=== PATIENT | male | born 1935 | race Caucasian/White ===

== ENCOUNTER 2020-05-06 14:49 | Inpatient (IN) | payer MEDICARE ==
[~2020-05-06] VITALS: Ht 177.8 cm; Wt 70.2 kg
[2020-05-06] MEDS ORDERED: COUMADIN 1MG TAB1 M1 PER TUBE (15:14)
[2020-05-06] MEDS ORDERED: UNICOMPLEX M TA1 TA1 PO (15:15)
[2020-05-06] MEDS ORDERED: PLAVIX 75 MG TA75 MG PO (15:16)
[2020-05-06] MEDS ORDERED: ASA81BEC PO (15:17)
[2020-05-06] MEDS ORDERED: DILANTIN-1125 MG/5 M PO (15:19)
[2020-05-06] MEDS ORDERED: LOVENOX40 MG/0.4 SUBQ (15:20)
[2020-05-06] MEDS ORDERED: LOPRESSOR50 MG PER TUBE (15:21)
[2020-05-06] MEDS ORDERED: PROTONIX40 M2 PO (15:22)
[2020-05-06] MEDS ORDERED: IPRAT-ALBUT 0.5-3 ML INH (15:24)
[2020-05-06] MEDS ORDERED: DILANTIN50 MG PO (15:25)
[2020-05-06] MEDS ORDERED: CRESTOR40 MG PO (15:28)
[2020-05-06 19:11] VITALS: BP 99/55
[2020-05-06 19:15] VITALS: BP 96/50
[2020-05-07 04:41] LABS: HEMATOCRIT 27.6 % (42.0-52.0); HEMOGLOBIN 9.4 gm/dL (14.0-18.0); MCV 94.2 fL (80.0-100.0); MPV 7.6 fl. (7.2-11.1); RBC 2.93 mil/uL (4.50-6.00); RDW-CV 19.9 % (10.5-14.5); WBC 8.3 thou/uL (4.0-11.0)
[2020-05-07 04:49] LABS: CALCIUM 8.6 mg/dL (8.5-10.1); CREATININE 0.9 mg/dL (0.6-1.3); POTASSIUM 4.1 mmol/L (3.5-5.1)
[2020-05-07 04:53] LABS: INR 1.1; PROTIME 11.5 Seconds (9.20-11.50)
--- NOTE | 2020-05-07 06:29 | NUR ---
PT ARRIVED ONTO UNIT AT APPROX 1800 FROM [facility]. ASSUMED CARES AT 1920. ALERT AND ORIENTED. BUT CAN BE FORGETFUL. [place]. 02 2L NC PLACED ON BY RT OVERNIGHT. NPO. PEG TUBE. HAS JEVITY 1.5 @ 55CC/HR CONTINUOUS. H20 100 CC FLUSHES. CONSULTED FLY WORKER FOR FEEDING RECOMMENDATIONS THIS AM. PILLS CRUSHED AND GIVEN VIA PEG TUBE. PT USED URINAL BUT WAS FOUND TO BE INCONTINENT OF URINE AND STOOL. DENIED ANY PAIN, NAUSEA/VOMITING. SPOKE WITH PT'S SON AND INFORMED OF ARRIVAL ONTO UNIT. SLEPT MOST OF THE NIGHT. CALL LIGHT IN REACH AND BED ALARM ON.
[2020-05-07 08:03] VITALS: BP 93/56
--- NOTE | 2020-05-07 16:32 | NUR ---
AM ASSESSMENT AND VITAL SIGNS COMPLETED DOCUMENTED. PT PARTICIPATED WITH PT, OT AND ST, TOLERATED WELL. PT SHOWERED, SKIN AROUND PEG TUBE CLEANED AND DRAIN SPONGE REPLACED. TAPE CONTROL SKIN OR SPAR MILL OPERATOR CONSULTED AND TUBE FEEDING HAS BEEN CONVERTED TO BOLUS FEEDINGS WITH WATER FLUSHES. PT USES THE CALL LIGHT APPROPRIATELY, REQUIRES ASSISTANCE WITH USING THE URINAL. FALL PRECAUTIONS AND HOURLY ROUNDING CONTINUE.
[2020-05-07 20:03] VITALS: BP 91/48
[2020-05-07 22:43] VITALS: BP 92/52
[2020-05-08 06:05] LABS: INR 1.1; PROTIME 11.6 Seconds (9.20-11.50)
--- NOTE | 2020-05-08 06:42 | NUR ---
ASSUMED CARES AT 1920. ALERT AND ORIENTED. PLEASANT. DENIED ANY PAIN. 02 2L NC. PEG TUBE PATENT. HAD 20 CC STOMACH RESIDUAL CHECK. BOLUS OF 1 CAN JEVITY GIVEN AT HS WITH 100 CC H2O FLUSH. PT TOLERATED WELL. MIN ASSIST WITH GAIT BELT AND WALKER. VERY WEAK AND UNSTABLE GAIT. USED URINAL WITH NURSING ASSIST. HELD METOPROLOL DUE TO LOW BP. SLEPT MOST OF THE NIGHT. CALL LIGHT IN REACH AND BED ALARM ON.
[2020-05-08 07:53] VITALS: BP 96/53
--- NOTE | 2020-05-08 17:03 | NUR ---
GRACIE and Dr Pardo met with pt to review team conference summary and plan for pt to remain on rehab unit and team to reteam next Wednesday. SW called pt and then spoke with pt son in person to review team conference summary and discuss dc planning and complete assessment. Pt lives at home with . 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 Pt has RW, cane. Pt had been having falls, sleep issues over the past month. Pt son said that pt was able to take care of himself but declined in function from the beginning of March to Father's Day. 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 Pt son said that at [facility], they had ruled out CVA, brain tumor, cancer (pt has hx of lymphoma). SW to continue to follow to assist with safe dc planning.
--- NOTE | 2020-05-08 18:29 | NUR ---
ASSESSMENT COMPLETED DOCUMENTED THIS MORNING. PATIENT PARTICIPATING WITH THERAPIES AND FATIGUES EASILY. VIDEO SWALLOW THIS MORNING WITH ST...UPGRADED TO REGULAR DIET AND NECTAR LIQUIDS, MAY TAKE ONE PILL AT A TIME WITH NECTAR LIQUIDS. HAS HAD LUNCH AND SUPPER TOLERATING WELL AND REMEMBERS TO ALWAYS DO HIS CHIN TUCK WITH ALL SWALLOWS. 02 ON 2LPM/NC WITH NOTED SOB WITH ACTIVITY. IS ALERT AND PLEASANT WITH RANDOM ATAXIC MOVEMENTS NOTED, DR. KOWALSKI CONSULTED AND WAS CALLED TO ANSWERING SERVICE AT 1315.
[2020-05-08 19:30] VITALS: BP 96/48
[2020-05-09 04:02] LABS: INR 1.2; PROTIME 11.9 Seconds (9.20-11.50)
--- NOTE | 2020-05-09 04:48 | NUR ---
ASSUMED CARES AT 1920. ALERT AND ORIENTED. PLEASANT. WILL SOMETIMES GET UP WITHOUT CALLING TO USE BATHROOM. O2 2L NC. TOOK PILLS WHOLE WITH NECTAR THICK LIQUIDS. NO COUGHING WITH SWALLOWING OR ANY ISSUES NOTED. ENCOURAGED FLUIDS. MIN ASSIST WITH GAIT BELT AND WALKER. GAIT IS WOBBLY AND UNSTEADY AT TIMES. DENIED ANY PAIN. PEG TUBE PATENT. SLEPT WELL. CALL LIGHT IN REACH AND BED ALARM ON.
[2020-05-09 08:00] VITALS: BP 87/44
--- NOTE | 2020-05-09 18:18 | NUR ---
AM ASSESSMENT AND VITAL SIGNS COMPLETED DOCUMENTED. PT CONTINUES TO MAKE PROGRESS WITH ALL THERAPIES. PT HAS A GOOD APPETITE AND IS INDEPENDENT WITH EATING, ENCOURAGED HIM TO INCREASE INTAKE OF THICKENED LIQUIDS. PT HAS NOT HAD ANY INCONTINENCE THIS SHIFT. FALL PRECAUTIONS AND HOURLY ROUNDING CONTINUE.
[2020-05-09 19:45] VITALS: BP 85/59
--- NOTE | 2020-05-09 23:37 | NUR ---
ASSUMED CARE AT 1930. PATIENT RESTING IN RECLINER WATCHING THE WORLD SERIES FROM 1984. TO BED AROUND 2029. MEDS CRUSHED AND PLACED INTO PEG. PEG PATENT AND FLUSHES WELL WITH NO RESIDUAL. UP WITH GAIT BELT, WALKER. ALERT AND ORIENTED. O2 2L/NC. METOPROLOL HELD THIS PM DUE TO LOW BP. HEART RATE RECHECKD MANUALLY, WAS 81/MIN. VOIDS PER URINAL. NO C/O PAIN. HOURLY ROUNDS CONTINUE. BED ALARM ON. CALL LITE IN REACH
[2020-05-10 05:21] LABS: INR 1.2; PROTIME 12.8 Seconds (9.20-11.50)
--- NOTE | 2020-05-10 05:33 | NUR ---
SLEPT MOST OF THE NIGHT. MENTIONED TO EDITORIAL WRITER THAT HE WANTED SIDE RAIL DOWN TO VOID. THIS WAS REPORTED TO NURSING, PATIENT UP WITH COMMODITIES BROKER, GAIT BELT WALKER. VOIDED PER TOILET WHILE STANDING. GAIT IMPROVED OVER LAST NIGHT. NO C/O PAIN. TURNS SELF. HOURLY ROUNDS CONTINUE. BED ALARM ON. CALL LITE IN REACH.
[2020-05-10 07:54] VITALS: BP 93/51
--- NOTE | 2020-05-10 18:18 | NUR ---
ASSESSMENT COMPLETED DOCUMENTED THIS MORNING. PATIENT HAS BEEN UP AND PARTICIPATING WITH THERAPY....TOLERATING AND PROGRESSING WELL. MRI OF THE HEAD PERFORMED THIS MORNING AND IN TO SEE PATIENT WITH NO NEW ORDERS REC'D. CONTINUES TO EAT AND DRINK WELL WITH NO ISSUES SWALLOWING. 02 AT 2LPM/NC WITH SATS IN THE MID 90'S.
[2020-05-10 20:00] VITALS: BP 96/55
[2020-05-11 04:29] LABS: INR 1.3; PROTIME 13.7 Seconds (9.20-11.50)
--- NOTE | 2020-05-11 05:24 | NUR ---
PT ALERT AND ORIENTED. FORGETFUL. MEDS GIVEN PER EMAR. METOPROLOL HELD DUE TO BP WAS 96/55. PT DENIES PAIN THIS SHIFT. FALL PRECAUTIONS IN PLACE. CALL LIGHT WITHIN REACH. HOURLY ROUNDINGS MADE. PT SLEPT WELL THIS SHIFT. WILL CONTINUE TO MONITOR.
[2020-05-11 09:00] VITALS: BP 94/58
--- NOTE | 2020-05-11 10:52 | CON ---
[address] [address] CONSULTATION Name: CHACHOELIZABETH Regina Room: [address] ADM IN M.R.#: [id number] Admission: 05/06/20 Attend Phys: Stephon Pardo MD Discharge: Date of : 39 Report #: [id number] THIS REPORT FOR: //name// cc: Dale Sanderson MD, Cabot L. MD ~ THIS REPORT FOR: //name// CC: Dale Pardo DATE OF SERVICE: 05/08/2020 HISTORY OF PRESENT ILLNESS: This is an 84-year-old male patient who was seen by me for ataxia. The patient provides only limited history. I tried to call the patient's and patient's son but I am unable to reach them. He does not think there is much ataxia going on. In fact, he was walking with physical therapist and I talked to him and he indicated when the patient goes tandem walking, he is unstable on his feet. It is not clear how long it is going. REVIEW OF SYSTEMS: Difficult. The patient is very hard of hearing. It is only from the records and he apparently was in [facility]. He had swallowing difficulty there and I am not sure what happened there. I need to talk to the family. He does have generalized weakness. He denies any visual cardiac symptoms. He does appear to have respiratory symptoms. He does not complain of any musculoskeletal, constitutional, dermatological, hematological, psychiatric, throat symptom associated with present symptomatology. PAST MEDICAL HISTORY: Positive for admission to [facility] and I am not sure what that admission was for. FAMILY HISTORY: Noncontributory. SOCIAL HISTORY: He says he does not drink any alcohol. PHYSICAL EXAMINATION: Indicate he is hard of hearing, but his speech looks intact. His memory is somewhat diminished, but I do not know what his baseline is. He moves all 4 extremities. He tells me that he can appreciate the position sense. His reflexes are symmetrical. He was able to do [id number]. He could not cooperate with the fundus examination. He is reasonably built individual. He does not have any dysmorphic features of eyes, ears and face. Cardiac examination appears unremarkable. Respiratory examination indicates some respiratory difficulty. Blood pressure is 96/53, pulse is 70, temperature is 97.8. There is no imaging study here. IMPRESSION: I will try to talk to you and try to continue to reach this patient's family. He is on Dilantin. I do not know why [place] [address] CONSULTATION Name: ELIZABETH FLOR Room: [address] IN M.R.#: [id number] Admission: 05/06/20 Attend Phys: Stephon Pardo MD Discharge: Date of : 39 Report #: [id number] do not know what kind of workup he had, he will need an MRI. He will need a Dilantin level and rest of them, we will try to see what to say and decide about further management after that. Thank you very much for this referral. <ELECTRONICALLY SIGNED> By: Catracho Rod MD 05/11/20 [id number] [id number] Rod MD /nt
[2020-05-11 19:15] VITALS: BP 90/43
--- NOTE | 2020-05-11 19:43 | NUR ---
UP WITH STAND BY ASSIST, GAIT BELT AND WALKER. DENIES NEED FOR PAIN MEDICATION WHEN ASKED. EATTING REGULAR DIET WITH NECTAR THICKEN LIQUIDS WITHOUT DIFFICULTY. Sunshine CALHOUN BAR EXAMINER NOTIFIED OF LOW B/P AND NEW ORDER NOTED. WILL CONTINUE TO MONITOR B/P. O2 SAT WITH THERAPY ON ROOM AIR REMAINS ABOVE 94%. USUALLY USES CALL LIGHT WHEN NEED ASSIST. FALL PRECAUTIONS IN PLACE. BED ALARM AND CHAIR ALARM USED.
[2020-05-11 19:50] VITALS: BP 105/64
--- NOTE | 2020-05-12 05:22 | NUR ---
PT ALERT AND ORIENTED. VSS ON RA. MEDS GIVEN PER EMAR. PT SLEPT WELL THIS SHIFT. PT DENIES PAIN THIS SHIFT, MEDS GIVEN PER EMAR. FALL PRECAUTION IN PLACE. CALL LIGHT WITHIN REACH. WILL CONTINUE TO MONITOR.
[2020-05-12 06:11] LABS: INR 1.4; PROTIME 14.2 Seconds (9.20-11.50)
[2020-05-12 07:01] VITALS: BP 106/61
[2020-05-12 07:45] VITALS: BP 96/58
[2020-05-12 16:00] VITALS: BP 99/49
[2020-05-12 16:02] VITALS: BP 92/53
[2020-05-12 16:04] VITALS: BP 92/48
--- NOTE | 2020-05-12 16:09 | NUR ---
ALERT AND ORIENTED X4. UP WITH 1 ASSIST, GAIT BELT AND WALKER. IMPULSIVE AT TIMES. DENIES PAIN WHEN ASKED. CONTINENT OF BOWEL AND BLADDER. REMAINS ON REGULAR DIET WITH NECTAR THICKEN LIQUIDS. USUALLY USES CALL LIGHT WHEN NEEDING ASSIST. FALL PRECAUTIONS IN PLACE, BED ALARM AND CHAIR ALARM USED.
[2020-05-12 19:30] VITALS: BP 101/57
--- NOTE | 2020-05-13 05:49 | NUR ---
PT SLEPT WELL THIS SHIFT. ALERT AND ORIENTED. FORGETFUL. MEDS GIVEN PER EMAR. RT ORDERED. FALL PRECAUTION IN PLACE. CALL LIGHT WITHIN REACH. HOURLY ROUNDINGS MADE. WILL CONTINUE TO MONITOR.
[2020-05-13 05:55] LABS: INR 1.3; PROTIME 13.7 Seconds (9.20-11.50)
[2020-05-13 06:46] VITALS: BP 105/66
[2020-05-13 07:18] VITALS: BP 104/61
[2020-05-13 15:30] VITALS: BP 101/54
--- NOTE | 2020-05-13 17:44 | NUR ---
ALERT AND ORIENTED X4. UP WITH STAND BY ASSIST, GAIT BELT AND WALKER. IMPULSIVE AT TIME AND WILL NOT USE CALL LIGHT. FALL PRECAUTIONS IN PLACE. BED ALARM AND CHAIR ALARM USED. DENIES NEED FOR PAIN MEDICATIONS. REMAINS ON NECTAR THICKEN LIQUIDS. TOLERATING THICKEN LIQUIDS WITH NO COUGHING OR CHOKING NOTED.
[2020-05-13 19:15] VITALS: BP 98/50
--- NOTE | 2020-05-13 23:52 | NUR ---
ASSUMED CARE AT 1930. PATIENT RESTING IN BED WATCHING [employer] BASEBALL. TAKES PILLS WHOLE WITH WATER, FOLLOWED BY NECTAR THICK LIQUIDS. PEG TUBE INTACT. TURNS SELF. VOIDS PER URINAL. NO C/O PAIN. BED ALARM ON. CALL LITE IN REACH. HOURLY ROUNDS CONTINUE.
[2020-05-14 01:30] VITALS: BP 116/62
[2020-05-14 04:28] LABS: INR 1.3; PROTIME 13.3 Seconds (9.20-11.50)
--- NOTE | 2020-05-14 05:06 | NUR ---
APPEARS SLEEPING. RESTED IN BED ALL NIGHT. NO C/O PAIN. BED ALARM ON. CALL LITE IN REACH. HOURLY ROUNDS CONTINUE.
[2020-05-14 08:00] VITALS: BP 116/61
[2020-05-14 14:00] VITALS: BP 103/56
--- NOTE | 2020-05-14 16:29 | NUR ---
AM ASSESSMENT AND VITAL SIGNS COMPLETED DOCUMENTED. PT WORKED WITH ALL THERAPIES. PT HAS USED HIS CALL LIGHT APPROPRIATELY, AMBULATES TO THE BRP WITH A WALKER AND HAS BEEN CONTINENT THE ENTIRE SHIFT. PT FEEDS HIMSELF AND EATS 90-100% OF ALL MEALS. FALL PRECAUTIONS AND HOURLY ROUNDING CONTINUE.
[2020-05-14 20:25] VITALS: BP 91/50
--- NOTE | 2020-05-14 20:30 | NUR ---
SITTING UP IN BED WATCHING BASEBALL ON TV. DENIES DISCOMFORT. PEG DRESSING DRY/INTACT. TOOK MEDICATIONS WHOLE WITH NECTAR THICKENED APPLE JUICE. AMBULATED TO THE BATHROOM WITH SBA, GAITBELT, WALKER TO VOID. PATIENT CHANGED INTO [facility] WITH SET UP. CALL LIGHT WITHIN REACH.
--- NOTE | 2020-05-15 06:04 | NUR ---
RESTED QUIETLY. UP TO THE BATHROOM TO VOID THIS AM. HOURLY ROUNDING IN PROGRESS.
[2020-05-15 08:00] VITALS: BP 103/57
--- NOTE | 2020-05-15 16:14 | NUR ---
AM ASSESSMENT AND VITAL SIGNS COMPLETED DOCUMENTED. PT WORKED WITH ALL THERAPIES, CONTINUES TO MAKE PROGRESS. PT HAS BEEN CONTINENT AND IS ABLE TO MANAGE [employer] AND CLOTHING WITH MIN ASSIST. FALL PRECAUTIONS AND HOURLY ROUNDING CONTINUE.
[2020-05-15 19:41] VITALS: BP 103/91
--- NOTE | 2020-05-15 23:11 | NUR ---
ASSUMED CARE AT 1930. PATIENT RESTING IN BED. TAKES PILLS WHOLE ONE AT A TIME WITH NECTAR THICK LIQUIDS WITHOUT DIFF. UP WITH SBA, GAIT BELT, WALKER. SOME ATAXIA NOTED BUT SAFE ENOUGH FOR CARES. VOIDS AND HAD BM PER TOILET. DENIES PAIN. PEG TUBE C/D/I. FALL PRECAUTIONS REINFORCED. NO C/O PAIN HOURLY ROUNDS CONTINUE. ALARMS FOR SAFETY. CALL LITE IN REACH.
--- NOTE | 2020-05-16 06:00 | NUR ---
RESTED IN BED ALL SHIFT. APPEARED TO BE SLEEPING MOST OF THE NIGHT. TURNS SELF. NO C/O PAIN. UP TO HAVE BM AND VOID ONCE, VOIDS PER URINAL. HOURLY ROUNDS CONTINUE. ALARMS FOR SAFETY. CALL LITE IN REACH.
[2020-05-16 09:30] VITALS: BP 143/54
--- NOTE | 2020-05-16 09:39 | NUR ---
GRACIE and Dr Pardo met with pt after team conference yesterday to review team conference summary and plan for pt to remain on rehab another week with plan to dc home after team conference next Tuesday 05/22. Pt in agreement with plan. GRACIE called pt son Kadeem this morning and reviewed dc planning and requested for family to bring in pt shoes per OT. Pt son thought pt had shoes here from his admission but said he would consider bringing in other shoes as well. SW to continue to follow to assist with safe dc planning.
[2020-05-16 11:50] VITALS: BP 94/63
[2020-05-16 11:55] VITALS: BP 85/60
[2020-05-16 12:00] VITALS: BP 80/55
[2020-05-16 12:15] VITALS: BP 94/54
--- NOTE | 2020-05-16 16:58 | NUR ---
ASSUMMED CARE OF PT AT 0730, PT ALERT AND ORIENTED, FROGETFUL, TRANSFERS WITH GB WALKER ASSIST OF 1, AMBULATES TO BATHROOM TO VOID, CONTINENT OF BOWEL AND BLADDER, HAD EPISODE THIS AM OF FEELING WEAK, SWEATY, ORTHOSTATIC BP CHECKED, DROP IN BP NOTED, PHYSICIAN INFORMED, NO FURTHER ORDERS, PT ENCOURAGED TO DRINK MORE FLUIDS, FEELING BETTER DAY PROGRESSES, TOLERATED FOOD AND FLUIDS WELL, NECTAR THICK LIQUIDS MAINTAINED, PT EDUCATED ON HIGH FALL RISK AND IMPORTANCE OF NOT GETTING UP WITHOUR USING CALL LIGHT, PT IS ABLE TO TURN OFF CHAIR ALARM AND HAS BEEN UP IN ROOM WITHOUT ASSIST, PARTICIPATED IN ALL THERAPIES, HOURLY ROUNDING COMPLETED, ASSESSMENT COMPLETE, WILL CONTINUE TO MONITOR.
[2020-05-16 19:30] VITALS: BP 96/54
[2020-05-17 06:00] VITALS: BP 106/61
--- NOTE | 2020-05-17 06:27 | NUR ---
PT SLEPT WELL THIS SHIFT. VSS ON RA. ALERT AND ORIENTED. PT HAD BM X3 THIS SHIFT. PT USED CALL LIGHT APPROPRIATELY. MEDS GIVEN ORDERED. PT DENIES PAIN. FALL PRECAUTION IN PLACE. CALL LIGHT WITHIN REACH. HOURLY ROUNDINGS MADE. WILL CONTINUE TO MONITOR.
[2020-05-17 08:00] VITALS: BP 109/60
[2020-05-17 08:05] VITALS: BP 105/60
[2020-05-17 08:10] VITALS: BP 98/55
[2020-05-17 14:28] LABS: CALCIUM 8.4 mg/dL (8.5-10.1); CREATININE 0.9 mg/dL (0.6-1.3); POTASSIUM 4.1 mmol/L (3.5-5.1)
[2020-05-17 16:00] VITALS: BP 112/58
--- NOTE | 2020-05-17 16:18 | NUR ---
ASSUMMED CARE OF PT AT 0730, PT ALERT AND ORIENTED, FORGETFUL, TRANSFERS WITH SBA, GB WALKER BUT NEEDS CUEING HE LEAVES THE WALKER BEFORE HE IN NEAR THE CHAIR OR TOILET, PT DOES AMBULATE TO TOILET TO VOID, PT INFORMED OF NEED FOR URINE SAMPLE, PT VOIDED INTO TOILET RATHER THAN URINAL, PT RE EDUCATED ON NEED FOR SAMPLE, PT ABLE TO TURN OFF CHAIR ALARM AND PT FOUND UP IN ROOM , PT EDUCATED ON FALL PRECATUIONS AND NEED TO USE CALL LIGHT, NO C/O DIZZINESS THIS SHIFT, DENIES PAIN, TAKING FOOD AND FLUIDS WELL, PARTICIPATED IN ALL THERAPIES, HOURLY ROUNDING COMPLETED, ASSESSMENT COMPLETE, WILL CONTINUE TO MONITOR.
[2020-05-17 19:22] LABS: URINE BILIRUBIN NEGATIVE (Negative); URINE BLOOD NEGATIVE (Negative); URINE CLARITY CLEAR; URINE COLOR YELLOW; URINE GLUCOSE-RANDOM NEGATIVE (Negative); URINE KETONES NEGATIVE (Negative); URINE LEUKOCYTES-REFLEX NEGATIVE (Negative); URINE NITRITE-REFLEX NEGATIVE (Negative); URINE PROTEIN NEGATIVE (Negative); URINE UROBILINOGEN 0.2 E.U./dl (0.2-1.0)
[2020-05-17 19:30] VITALS: BP 98/52
--- NOTE | 2020-05-17 20:25 | NUR ---
SITTING UP IN BED WATCHING BASEBALL ON TV. GOT UP EARLIER OUT OF BED WITHOUT CALLING FOR ASSISTANCE. DENIES DISCOMFORT. CALL LIGHT WITHIN REACH. DRINKS NECTAR THICKENED LIQUIDS.
--- NOTE | 2020-05-18 05:29 | NUR ---
RESTED SOUNDLY. UP TO THE BATHROOM THIS MORNING WITH CGA, WALKER. REFUSES TO TAKE THE WALKER ALL THE WAY TO THE TOILET. LOST HIS BALANCE BEFORE SITTING DOWN TO THE TOILET. HAD A MODERATE LOOSE BM. DOES OWN [employer]. HOURLY ROUNDING IN PROGRESS.
[2020-05-18 08:00] VITALS: BP 108/63
--- NOTE | 2020-05-18 18:28 | NUR ---
AM ASSESSMENT AND VITAL SIGNS COMPLETED DOCUMENTED. PT WORKED WITH THERAPIES. PT IS AMBULATORY WITH A WALKER, UNSTEADY BUT ABLE TO RECOVER WITHOUT FALLING. PT REMAINS ON THICKENED LIQUIDS, INCREASED INTAKE ENCOURAGED. PT HAS BEEN CONTINENT THIS SHIFT. NO C/O PAIN OR DISCOMFORT. FALL PRECAUTIONS AND HOURLY ROUNDING CONTINUE.
--- NOTE | 2020-05-18 19:20 | NUR ---
SITTING UP IN BED WATCHING BASEBALL ON TV. DENIES DISCOMFORT. IN GOOD SPIRITS. CALL LIGHT WITIN REACH. AMBULATED TO THE BATHROOM WITH SBA, GAITBELT, WALKER. STOOD AT TOILET TO VOID.
[2020-05-18 19:30] VITALS: BP 105/60
[2020-05-19 05:14] LABS: INR 1.2; PROTIME 12.8 Seconds (9.20-11.50)
--- NOTE | 2020-05-19 05:53 | NUR ---
UP X 2 DURING THE NIGHT TO THE BATHROOM TO VOID WITH SBA, GAITBELT, WALKER. HOURLY ROUNDING IN PROGRESS.
[2020-05-19 08:00] VITALS: BP 107/60
--- NOTE | 2020-05-19 17:51 | NUR ---
AM ASSESSMENT AND VITAL SIGNS COMPLETED DOCUMENTED. PT AMBULATES TO THE BRP WITH A WALKER AND STAND BY ASSIST. PT FEEDS HIMSELF AND HAS A GOOD APPETITE. NO C/O PAIN OR DISCOMFORT. PT ENCOURAGED TO USE THE CALL LIGHT BEFORE GETTING UP AND HAS BEEN MORE COMPLIANT THIS SHIFT. FALL PRECAUTIONS AND HOURLY ROUNDING CONTINUE.
[2020-05-19 19:25] VITALS: BP 82/44
--- NOTE | 2020-05-19 19:25 | NUR ---
SITTING UP IN CHAIR WATCHING TV. DENIES DISCOMFORT. CALL LIGHT WITHIN REACH. AMBULATED TO THE BATHROOM WITH SBA, GAITBELT, WALKER. HAD A MODERATE BM. DID OWN [facility]. DECIDED TO GO TO BED AFTERWARDS.
[2020-05-20 04:30] LABS: ABSOLUTE BASOPHILS 0.1 thou/uL (0.0-0.2); ABSOLUTE EOSINOPHILS 0.2 thou/uL (0.0-0.7); ABSOLUTE MONOCYTES 0.7 thou/uL (0.0-1.2); ABSOLUTE NEUTROPHILS 3.1 thou/uL (1.6-8.1); BASOPHILS 1.8 %; EOSINOPHILS 4.2 %; HEMATOCRIT 29.8 % (42.0-52.0); HEMOGLOBIN 10.1 gm/dL (14.0-18.0); LYMPHOCYTES 19.9 %; MCH 31.5 pg (26.0-34.0); MCHC 33.9 g/dL (28.0-37.0); MONOCYTES 13.8 %; MPV 7.9 fl. (7.2-11.1); NUCLEATED RBCS 0 /100WBC; PLATELET COUNT* 280 thou/uL (150-400); POLYS 60.3 %; RDW-CV 18.2 % (10.5-14.5); WBC 5.1 thou/uL (4.0-11.0)
[2020-05-20 04:38] LABS: CALCIUM 7.8 mg/dL (8.5-10.1); POTASSIUM 4.2 mmol/L (3.5-5.1)
--- NOTE | 2020-05-20 05:33 | NUR ---
UP X 2 DURING THE NIGHT TO THE BATHROOM TO VOID. DIDN'T USE THE CALL LIGHT. SET THE BED ALARM OFF. PATIENT IS SLIGHTLY UNSTEADY. HOURLY ROUNDING IN PROGRESS.
[2020-05-20 07:45] VITALS: BP 112/61
--- NOTE | 2020-05-20 15:48 | NUR ---
ALERT AND ORIENTED X4. DENIES NEED FOR PAIN MEDICATION. UP WITH STAND BY ASSIST, GAIT BELT AND WALKER. REMAINS ON NECTAR THICKEN LIQUIDS AND REGULAR DIET. CALL LIGHT WITHIN REACH BUT PATIENT AT TIMES WILL BE IMPULSIVE AND GET UP WITHOUT USING CALL LIGHT AND THEN SHUT OFF ALARM. FALL PRECAUTIONS IN PLACE. BED ALARM AND CHAIR ALARM USED. NOT USING PEG TUBE AT THIS TIME.
[2020-05-20 19:20] VITALS: BP 106/63
--- NOTE | 2020-05-21 05:27 | NUR ---
Pt alert and oriented. Forgetful. VSS on RA. MEds given per emar. Pt denies pain. Pt slept well this shift. Pt called out appropriately to use the bathroom and also pulled the cord in his bathroom when he was done as instructed, except one time. Pt now awake, brushed his hair, washed his face, cleaned ou t his dentures and sitting in the recliner. Will continue to monitor.
[2020-05-21 07:45] LABS: INR 1.3; PROTIME 13.1 Seconds (9.20-11.50)
[2020-05-21 08:00] VITALS: BP 91/61
[2020-05-21] MEDS ORDERED: CYCLOBENZAPRINE10 MG PO (09:53)
[2020-05-21] MEDS ORDERED: LOVENOX100 MG/1 M SUBQ (09:53)
[2020-05-21] MEDS ORDERED: COUMADIN 5 MG TA5 M1 PO (09:53)
--- NOTE | 2020-05-21 14:28 | NUR ---
ASSUMMED CARE OF PT AT 0730, PT ALERT AND ORIENTED, FORGETFUL, TRANSFERS WITH SBA, GB WALKER, AMBULATES TO BATHROOM TO VOID, NO BM THIS SHIFT, DENIES PAIN, PT TAKING FOOD AND NECTAR THICK LIQUIDS, PEG TUBE INTACT, GROIN AND SCROTAL AREA RED,SCALY, BARRIER OINTMENT APPLIED, WILL INFORM PHYSICIAN, PARTICIPATED IN ALL THERAPIES, HOURLY ROUNDING COMPLETED, ASSESSMENT COMPLETE, WILL CONTINUE TO MONITOR.
[2020-05-21 19:35] VITALS: BP 107/57
--- NOTE | 2020-05-21 19:35 | NUR ---
SITTING UP IN BED WATCHING THE [employer] ON TV. IN GOOD SPIRITS. DENIES DISCOMFORT. CALL LIGHT WITHIN REACH. MYCOSTATIN POWDER APPLIED TO REDDENED AREA IN GROIN. ENCOURAGED PATIENT TO LEAVE PJ PANTS OFF TONIGHT TO LET SKIN AIR OUT. PATIENT KEPT PANTS OFF BUT LEFT UNDERWEAR ON.
--- NOTE | 2020-05-22 04:54 | NUR ---
UP X 2 DURING THE NIGHT TO THE BATHROOM TO VOID. HOURLY ROUNDING IN PROGRESS.
[2020-05-22 07:41] LABS: INR 1.5; PROTIME 14.8 Seconds (9.20-11.50)
[2020-05-22 08:20] VITALS: BP 103/65
--- NOTE | 2020-05-22 15:09 | NUR ---
ASSUMMED CARE OF PT AT 0730, PT ALERT, FORGETFUL, TRANSFERS WITH SBA/MIN ASSIST GB WALKER, NEEDS CUEING, VOIDS PER TOILET, SMALL BM X 1 THIS AM, NYSTATIN APPLIED TO GROIN/SCROTAL AREA, PT ON THIN LIQUIDS AND TOLERATING WELL, RICCARDO RODRIGUEZ, PARTICIPATED IN ALL THERAPIES, HOURLY ROUNDING COMPLETED, ASSESSMENT COMPLETE, WILL CONTINUE TO MONITOR.
--- NOTE | 2020-05-22 17:02 | NUR ---
GRACIE and Dr Pardo met with pt to review team conference and plan for dc Wednesday as team recommending pt have supervision/possible assist available at all times and was not certain pt would be capable caregiver at all times. Pt understood possible dc home Wednesday vs facility if needed. GRACIE spoke in detail with pt son who said that pt should be okay to care for pt and provide supervision as pt is actually functioning better than realized and is at home alone while pt is in hospital. Pt son said that he and siblings will be able to check on pt more often and HH services to assist with pt safety in the home. GRACIE provided referrrals and facility options but plan at dc would be for pt to be able to dc home with and children support and HH on Thursday 05/24.
[2020-05-22 19:15] VITALS: BP 91/52
--- NOTE | 2020-05-22 19:15 | NUR ---
SITTING UP IN BED WATCHING TV. DENIES DISCOMFORT. CALL LIGHT WITHIN REACH. REDNESS IN GROIN AREA IMPROVING.
--- NOTE | 2020-05-23 06:15 | NUR ---
UP X TWO DURING THE NIGHT TO THE BATHROOM TO VOID AND HAD A BM EACH TIME. RESTED QUIETLY IN BETWEEN. HOURLY ROUNDING IN PROGRESS.
[2020-05-23 07:52] LABS: INR 1.7; PROTIME 16.9 Seconds (9.20-11.50)
[2020-05-23 08:00] VITALS: BP 108/55
[2020-05-23 19:25] VITALS: BP 110/54
--- NOTE | 2020-05-23 19:25 | NUR ---
SITTING UP IN BED WATCHING [employer] GAME ON TV. IN GOOD SPIRITS. REDNESS IN GROIN CONTINUES TO IMPROVE. DENIES DISCOMFORT. CALL LIGHT WITHIN REACH.
[2020-05-24 03:59] LABS: INR 1.6; PROTIME 16.7 Seconds (9.20-11.50)
--- NOTE | 2020-05-24 05:30 | NUR ---
RESTED ON/OFF. UP X 3 DURING THE NIGHT TO VOID. HAS BEEN AWAKE SINCE ABOUT 0445. DENIES NEEDS. PLAN IS FOR PATIENT TO BE DISCHARGED TO HOME TODAY. HOURLY ROUNDING IN PROGRESS.
[2020-05-24 07:45] VITALS: BP 105/87
[2020-05-24 12:48] VITALS: BP 105/87
[2020-05-24 14:42] VITALS: BP 105/87
--- NOTE | 2020-05-24 14:43 | NUR ---
Pt to dc home with and family support today. Pt and an adult child participated in family training at team request. HH services to follow; SW discussed HH options with pt/family and arranged with pt/family preference of [facility]. Ph [phone]
--- NOTE | 2020-05-24 15:45 | NUR ---
PATIENT AND VERBALIZED UNDERSTANDING OF DISCHARGE INSTRUCTIONS. DENIES PAIN. UP WITH STAND BY ASSIST, GAIT BELT AND WALKER. IMPULSIVE AT TIMES AND NEES CUEING TO SLOW DOWN. NEW RX CALLED INTO PHARMACY OF CHOICE. PEG TUBE CURRENTLY NOT BEING USED. PATIENT LEFT VIA W/C WITH THEAPY. PATIENT STATED HE HAD GIVEN SQ INJECTIONS IN STOMACH BEFORE AND HAD NO QUESTIONS OR PROBLEM WITH GIVING HIMSELF INJECTIONS AGAIN.
== END 2020-05-24 15:50 | disposition home health service (06) | DRG 947 ==
LOC: M.REH 14:49
PROVIDERS: Internal Medicine; Nurse Practitioner; Nurse Practitioner Family; ADMIT Physical Medicine & Rehabilitation; ATTEND Physical Medicine & Rehabilitation
DX: R53.81 Other malaise (principal); J96.90 Respiratory failure, unspecified, unspecified whether with hypoxia or hypercapnia; I47.1 Supraventricular tachycardia; E78.2 Mixed hyperlipidemia; I10 Essential (primary) hypertension; G40.909 Epilepsy, unspecified, not intractable, without status epilepticus; R13.19 Other dysphagia; I95.1 Orthostatic hypotension; I25.10 Atherosclerotic heart disease of native coronary artery without angina pectoris; E78.5 Hyperlipidemia, unspecified; K22.70 Barrett's esophagus without dysplasia; D64.9 Anemia, unspecified; R63.4 Abnormal weight loss; R27.0 Ataxia, unspecified; S06.9X0A Unspecified intracranial injury without loss of consciousness, initial encounter; X58.XXXA Exposure to other specified factors, initial encounter; Y93.89 Activity, other specified; Y92.89 Other specified places as the place of occurrence of the external cause; Y99.8 Other external cause status; Z88.8 Allergy status to other drugs, medicaments and biological substances; Z09 Encounter for follow-up examination after completed treatment for conditions other than malignant neoplasm; Z86.718 Personal history of other venous thrombosis and embolism; Z93.1 Gastrostomy status; Z68.22 Body mass index [BMI] 22.0-22.9, adult; Z79.82 Long term (current) use of aspirin; Z79.899 Other long term (current) drug therapy